=== PATIENT | female | born 1985 | race Caucasian/White ===

== ENCOUNTER 2024-11-16 00:23 | Observation (INO) | payer OTHER ==
[2024-11-16 00:44] VITALS: BMI 28.3
[2024-11-16] MEDS ORDERED: ACETAMINOPHEN 500 MG TABLET (FP) ONE (01:20)
[2024-11-16] MEDS: IBUPROFEN 400 MG TABLET (FP) PO ONE (01:20)
[2024-11-16] MEDS: ACETAMINOPHEN 500 MG TABLET (FP) PO ONE (01:24)
[2024-11-16 01:44] LABS: BASO % 0.3 % (0-2.0); EOS % 0.1 % (0-4.5); HEMATOCRIT 36.6 % (32.4-45.2); HEMOGLOBIN 12.3 GM/dL (10.7-15.3); LYMPH % 38.4 % (8-40); MCH 29.4 pg (25.7-33.7); MCHC 33.6 g/dl (32.0-36.0); MEAN CELL VOLUME 87.3 fl (80-96); MEAN PLT VOLUME 7.6 fl (7.5-11.1); MONO % 10.6 % (3.8-10.2); NEUT % 50.6 % (42.8-82.8); PLATELET COUNT 236 10^3/uL (134-434); RBC 4.19 M/mm3 (3.60-5.2); RDW 13.6 % (11.6-15.6); WHITE BLOOD COUNT 5.9 K/mm3 (4.0-10.0)
[2024-11-16 02:00] LABS: INR 1.09 (0.83-1.09); PROTHROMBIN TIME (PATIENT) 12.5 SEC (9.7-13.0)
[2024-11-16 02:03] LABS: ACTIVATED PTT 30.9 SECONDS (25.2-36.5)
[2024-11-16 02:05] LABS: CALCIUM 9.1 mg/dL (8.5-10.1)
[2024-11-16 02:06] LABS: BLOOD UREA NITROGEN 17.3 mg/dL (7-18)
[2024-11-16 02:09] LABS: CREATININE 0.7 mg/dL (0.55-1.3)
[2024-11-16 02:10] LABS: BILIRUBIN,TOTAL 0.4 mg/dL (0.2-1); TOT PROT 7.6 g/dl (6.4-8.2)
[2024-11-16 03:00] LABS: HIV INTERPRETATION NEGATIVE (NEGATIVE)
[2024-11-16 06:29] LABS: URINE APPEARANCE CLEAR; URINE BILIRUBIN NEGATIVE (NEGATIVE); URINE COLOR YELLOW; URINE GLUCOSE (UA) NEGATIVE (NEGATIVE); URINE KETONE 15 mg/dl (NEGATIVE); URINE LEUK ESTERASE NEGATIVE (NEGATIVE); URINE NITRITE NEGATIVE (NEGATIVE); URINE PROTEIN 30 (NEGATIVE); URINE UROBILINOGEN 0.2 mg/dL (0.2-1.0)
[2024-11-16] MEDS ORDERED: CLINDAMYCIN 600MG PREMIX IVPB 600 MG/50 ML BAG IVPB ONE (09:09)
[2024-11-16] MEDS: CLINDAMYCIN 600MG PREMIX IVPB 600 MG/50 ML BAG IVPB SCH (09:15)
[2024-11-16] MEDS: LACTATED RINGERS SOLUTION 1,000 ML/1,000 ML INFUS.BAG IV SCH (09:15)
[2024-11-16] MEDS ORDERED: LIDOCAINE 1%/EPI 1:100000 (20 ML MULTI DOSE VIAL) ONE (09:36)
[2024-11-16 12:26] VITALS: RESP 18
[2024-11-16] MEDS ORDERED: KETOROLAC TROMETHAMINE 15 MG/ML VIAL IVPUSH PRN (16:45)
[2024-11-16] MEDS: ACETAMINOPHEN 500 MG TABLET (FP) PO PRN (16:59)
[2024-11-18 09:39] VITALS: BP 121/71; PULSE 82; TEMP 98.8
[2024-11-18 11:03] LABS: EOS % 0.5 % (0-4.5); HEMATOCRIT 35.8 % (32.4-45.2); HEMOGLOBIN 12.4 GM/dL (10.7-15.3); LYMPH % 26.7 % (8-40); MCH 29.7 pg (25.7-33.7); MCHC 34.5 g/dl (32.0-36.0); MEAN CELL VOLUME 85.9 fl (80-96); MEAN PLT VOLUME 7.2 fl (7.5-11.1); MONO % 6.1 % (3.8-10.2); NEUT % 66.7 % (42.8-82.8); PLATELET COUNT 292 10^3/uL (134-434); RBC 4.17 M/mm3 (3.60-5.2); RDW 13.6 % (11.6-15.6); WHITE BLOOD COUNT 6.6 K/mm3 (4.0-10.0)
[2024-11-18 11:28] LABS: POTASSIUM 3.7 mmol/L (3.5-5.1)
[2024-11-18 11:33] LABS: BLOOD UREA NITROGEN 10.2 mg/dL (7-18)
[2024-11-18 11:36] LABS: CREATININE 0.7 mg/dL (0.55-1.3)
== END 2024-11-18 14:25 | disposition home or self-care (01) ==
LOC: JER 00:23 → JERBED 06:12 → J5S 11:42
PROVIDERS: ADMIT Internal Medicine; ATTEND Internal Medicine
PROC: 0J980ZZ Drainage of Abdomen Subcutaneous Tissue and Fascia, Open Approach (ICD-10-PCS; principal; 2024-11-16)
PROC: 3E03329 Introduction of Other Anti-infective into Peripheral Vein, Percutaneous Approach (ICD-10-PCS; 2024-11-16)
PROC: 3E0337Z Introduction of Electrolytic and Water Balance Substance into Peripheral Vein, Percutaneous Approach (ICD-10-PCS; 2024-11-16)
DX: L02.216 Cutaneous abscess of umbilicus (principal); Z90.79 Acquired absence of other genital organ(s); R10.30 Lower abdominal pain, unspecified; K76.0 Fatty (change of) liver, not elsewhere classified; N83.201 Unspecified ovarian cyst, right side
CPT/HCPCS: 36415; 74177-TC; 76830-TC; 80048; 80053; 81003; 84703; 85025; 85610; 85730; 86803; 86850; 86900; 86901; 87070; 87075; 87086; 87186; 87205; 87389; 99285-25; G0378; Q9967